=== PATIENT | male | born 1985 | race African-American/Black ===

== ENCOUNTER 2017-03-03 20:04 | Emergency (ER) | payer OTHER ==
[~2017-03-03] VITALS: Ht 182.9 cm; Wt 120.7 kg
[2017-03-03] MEDS ORDERED: TOPR50TA PO (20:40)
[2017-03-03] MEDS ORDERED: LISI10TA4 PO (20:40)
[2017-03-03] MEDS ORDERED: ADDE5TAB5 PO (20:40)
[2017-03-03] MEDS ORDERED: TRAM50TA2 PO (20:40)
[2017-03-03] MEDS ORDERED: FAMOTIDINE IV BAG 20 MG in APPROPRIATE DILUENT 1 EA IV ONE (21:30)
[2017-03-03] MEDS ORDERED: diphenhydrAMINE INJ 50MG/ML VIAL (J1200) IV ONE (21:30)
[2017-03-03] MEDS ORDERED: methylPREDNISolone INJ 125 MG/2 ML VIAL (J2930) IV ONE (21:30)
[2017-03-03] MEDS ORDERED: NS 1,000 ML IV ONE (21:30)
[2017-03-04 04:33] VITALS: BP 140/110
== END 2017-03-04 04:51 | disposition home or self-care (01) ==
LOC: M ED 21:11
DX: T78.3XXA Angioneurotic edema, initial encounter (principal); I10 Essential (primary) hypertension; Z79.899 Other long term (current) drug therapy; Z88.8 Allergy status to other drugs, medicaments and biological substances
CPT/HCPCS: 36430; 86850; 86900; 86901; 86927; 93041; 94760; 96374; 96375; 99285; J1200; J2930; P9017

== ENCOUNTER 2021-04-04 06:01 | Emergency (ER) | payer OTHER, SELFPAY ==
[~2021-04-04] VITALS: Ht 182.9 cm; Wt 134.3 kg
[~2021-04-04 06:01] MED LIST: ADDE1TAB14 PO; LISI10TA22 PO; TOPR50TA PO; TRAM50TA2 PO
[2021-04-04] MEDS ORDERED: AUGMENTIN 875 MG TAB PO ONE (07:00)
[2021-04-04] MEDS ORDERED: AUGM875T28 PO (07:03)
[2021-04-04] MEDS ORDERED: ANBE20GE TOP (07:06)
[2021-04-04 07:30] VITALS: BP 220/113
== END 2021-04-04 07:43 | disposition home or self-care (01) ==
LOC: M ED 06:01
DX: K02.9 Dental caries, unspecified (principal); K08.89 Other specified disorders of teeth and supporting structures; I15.8 Other secondary hypertension; Z91.14 Patient's other noncompliance with medication regimen; Z79.899 Other long term (current) drug therapy